=== PATIENT | male | born 1995 | race Two or more races ===

== ENCOUNTER 2018-01-17 12:06 | Emergency (ER) | payer SELFPAY ==
[~2018-01-17] VITALS: Ht 188 cm; Wt 68.0 kg
[~2018-01-17 12:06] MED LIST: PROMETHAZINE-C118 M1 ORAL; ZOFRAN4 M1 ORAL
[2018-01-17 12:19] VITALS: BP 119/66
[2018-01-17] MEDS ORDERED: Ketorolac 30mg Inj IM ONE (12:30)
[2018-01-17] MEDS ORDERED: Norco 5mg/325mg tab ORAL ONE (12:45)
[2018-01-17] MEDS ORDERED: NORCO 5-325 TA1 EACH ORAL (13:14)
[2018-01-17] MEDS ORDERED: IBUPROFEN600 MG ORAL (13:14)
[2018-01-17 13:20] VITALS: BP 119/66
--- NOTE | 2018-01-17 13:26 | Diagnostic Imaging Report ---
Indication: Back pain Comparison: None Findings: 3 views of the lumbar spine were obtained. No acute fracture or malalignment is identified. Vertebral body heights and disk spaces are well maintained. Posterior elements are unremarkable. Impression: No acute findings.
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
== END 2018-01-17 13:20 | disposition home or self-care (01) ==
LOC: EMR 12:28
DX: S39.012A Strain of muscle, fascia and tendon of lower back, initial encounter (principal); V43.52XA Car driver injured in collision with other type car in traffic accident, initial encounter; Y92.488 Other paved roadways as the place of occurrence of the external cause
CPT/HCPCS: 72020; 99283